=== PATIENT | male | born 1935 | race Caucasian/White ===

== ENCOUNTER 2016-10-15 15:49 | Inpatient (IN) ==
--- NOTE | 2016-10-15 16:16 | Emergency Department Note ---
Disposition Clinical Impression: Pneumonia Qualifiers: Pneumonia type: due to unspecified organism Laterality: right Lung location: unspecified part of lung Qualified Code(s): J18.9 - Pneumonia, unspecified organism Disposition: Admitted As Inpatient Condition: Fair SOB HPI - General Chief Complaint: ED Shortness of Breath/Dyspnea Stated Complaint: WORSENING OF COPD, BLOOD IN URINE Source: patient Limitations: no limitations Nursing Notes Reviewed: Yes Vital Signs Reviewed: Yes - History of Present Illness Patient is a 81-year-old gentleman with COPD. He was recently here evaluated by me for COPD exacerbation. He returns today with worsening cough and worsening shortness of breath. Pt Subjective Complaint: shortness of breath - Related Data Home Medications Medication Instructions Recorded Confirmed Albuterol Sulfate [Proair Hfa] 2 puff IH Q4H 10/15/16 10/15/16 Budesonide/Formoterol 160/4.5 1 puff IH BIDR 10/15/16 10/15/16 [Symbicort 160/4.5] Fluticasone Propionate Nasal 1 spray NS DAILY 10/15/16 10/15/16 [Flonase] Loratadine [Allergy Relief] 10 mg PO DAILY 10/15/16 10/15/16 Omeprazole [PriLOSEC] 20 mg PO DAILY 10/15/16 10/15/16 Rosuvastatin [Crestor] 20 mg PO HS 10/15/16 10/15/16 Tiotropium [Spiriva] 18 mcg IH 0700 10/15/16 10/15/16 Previous Rx's Medication Instructions Recorded PredniSONE 40 mg PO DAILY #10 tablet 10/13/16 Allergies Allergy/AdvReac Type Severity Reaction Status Date / Time Penicillins AdvReac See Verified 10/18/15 12:42 Comments All systems ED: reviewed and negative except as stated. Past Medical History - Past Medical History Medical history: Reports: cancer, COPD, other Psychiatric history: Reports: no psych history - Social History Smoking Status: Current every day smoker Smokeless Tobacco Status: No Alcohol use: Reports: none Drug use: Reports: none Physical Exam - General Limitations: no limitations General appearance: alert - Eye Eye exam: Present: normal appearance - ENT ENT exam: mucous membranes dry - Neck Neck exam: Present: normal inspection - Chest Chest inspection: Present: normal inspection, symmetric chest wall rise - Respiratory Respiratory exam: Present: wheezes - Cardiovascular Cardiovascular exam: Present: tachycardia - Abdominal Exam Abdominal exam: Present: soft, Non-Tender - Extremities Exam Extremities exam: Present: normal inspection - Expanded Lower Extremity Exam Gait: not tested/not observed - Back Exam Back exam: Present: normal inspection - Neurological Exam Neurological exam: Present: alert, oriented X3, CN II-XII intact - Psychiatric Psychiatric exam: Present: normal affect - Skin Skin exam: Present: warm, dry Course Vital Signs Temperature 98.3 F 10/15/16 15:52 Pulse Rate 122 10/15/16 15:52 Respiratory Rate 20 10/15/16 15:52 Blood Pressure 148/91 10/15/16 15:52 O2 Sat by Pulse Oximetry 99 10/15/16 15:52 Temperature 98.6 F 10/15/16 18:05 Pulse Rate 125 10/15/16 16:18 Respiratory Rate 22 10/15/16 18:05 Blood Pressure 130/92 10/15/16 18:05 O2 Sat by Pulse Oximetry 94 L 10/15/16 16:32 Oxygen Delivery Oxygen Delivery Nasal Cannula Shortness of Breath/Dyspnea - [facility] Narrative Medical decision making narrative: Differential: COPD versus pneumonia - Lab Data Lab results reviewed: Yes I reviewed the patient's lab results. Result diagrams: 10/15/16 16:23 10/15/16 16:23 Lab Results 10/15/16 10/15/16 10/15/16 Range/Units 16:23 16:23 16:23 WBC 16.4 H D (4.3-11.1) K/mcL RBC 4.30 (4.19-5.50) M/mcL Hgb 14.0 (12.9-16.9) g/dL Hct 41.1 (37.5-50.1) % MCV 95.6 (83.0-100.0) fL MCH 32.6 (28.0-33.3) pg MCHC 34.1 (31.6-35.5) g/dL RDW 12.4 (11.5-14.5) % Plt Count 308 (140-400) K/mcL MPV 8.5 L (9.4-12.4) fL Immature Gran % 0.6 (0-4) % Seg Neutrophils % 90.2 % Lymphocytes % 2.6 % Monocytes % 6.5 % Eosinophils % 0.0 % Basophils % 0.1 % Neutrophils # 14.8 H (1.6-8.9) K/mcL Lymphocytes # 0.4 L (0.6-4.6) K/mcL Monocytes # 1.1 (0.0-1.3) K/mcL Eosinophils # 0.0 (0.0-0.6) K/mcL Basophils # 0.0 (0.0-0.2) K/mcL PT 11.9 (9.4-12.1) Seconds INR 1.1 Sodium 140 (136-145) mEq/L Potassium 4.6 H (3.5-4.5) mEq/L Chloride 98 (98-109) mEq/L Carbon Dioxide 31 H (19-29) mEq/L BUN 22 (8-26) mg/dL Creatinine 0.81 (0.72-1.25) mg/dL Est GFR ( Amer) > 60 (> 60) Est GFR (Non-Af Amer) > 60 (> 60) BUN/Creatinine Ratio 27 H (6-26) Glucose 117 H (70-99) mg/dL Calculated Osmolality 294 (280-300) Calcium 11.0 H (8.6-10.8) mg/dL Total Bilirubin 0.3 (0.2-1.2) mg/dL AST 32 (5-34) Units/L ALT 24 (0-55) Units/L Alkaline Phosphatase 107 (38-126) Units/L Troponin I (0-0.03) ng/mL B-Natriuretic Peptide (0-100) pg/mL Serum Total Protein 7.4 (6.0-8.3) g/dL Albumin 3.1 L (3.5-5.0) g/dL Globulin 4.3 H (2.4-3.5) g/dL Albumin/Globulin Ratio 0.7 L (1.1-2.2) 10/15/16 10/15/16 Range/Units 16:23 16:23 WBC (4.3-11.1) K/mcL RBC (4.19-5.50) M/mcL Hgb (12.9-16.9) g/dL Hct (37.5-50.1) % MCV (83.0-100.0) fL MCH (28.0-33.3) pg MCHC (31.6-35.5) g/dL RDW (11.5-14.5) % Plt Count (140-400) K/mcL MPV (9.4-12.4) fL Immature Gran % (0-4) % Seg Neutrophils % % Lymphocytes % % Monocytes % % Eosinophils % % Basophils % % Neutrophils # (1.6-8.9) K/mcL Lymphocytes # (0.6-4.6) K/mcL Monocytes # (0.0-1.3) K/mcL Eosinophils # (0.0-0.6) K/mcL Basophils # (0.0-0.2) K/mcL PT (9.4-12.1) Seconds INR Sodium (136-145) mEq/L Potassium (3.5-4.5) mEq/L Chloride (98-109) mEq/L Carbon Dioxide (19-29) mEq/L BUN (8-26) mg/dL Creatinine (0.72-1.25) mg/dL Est GFR ( Amer) (> 60) Est GFR (Non-Af Amer) (> 60) BUN/Creatinine Ratio (6-26) Glucose (70-99) mg/dL Calculated Osmolality (280-300) Calcium (8.6-10.8) mg/dL Total Bilirubin (0.2-1.2) mg/dL AST (5-34) Units/L ALT (0-55) Units/L Alkaline Phosphatase (38-126) Units/L Troponin I 0.01 (0-0.03) ng/mL B-Natriuretic Peptide 58 (0-100) pg/mL Serum Total Protein (6.0-8.3) g/dL Albumin (3.5-5.0) g/dL Globulin (2.4-3.5) g/dL Albumin/Globulin Ratio (1.1-2.2) - Radiology Data Radiology results reviewed: Yes I reviewed the patient's radiology results. ITS Impressions Chest X-Ray 10/15/16 16:06 IMPRESSION: 1. Increased patchy right perihilar and basilar airspace opacities, potentially developing multifocal pneumonia given the clinical history. Lobular edema could appear similar. 2. Unchanged interstitial prominence could be related to pulmonary vascular congestion or interstitial pneumonia. 3. Suspected new trace bilateral pleural effusions. D/ / Sarbjit Byrnes MD / Sarbjit Byrnes MD Interpreting Provider: Sarbjit Byrnes MD - EKG Data EKG attestation: Yes I reviewed and interpreted this EKG. EKG shows normal: Reports: sinus rhythm Rate: Reports: tachycardia Rhythm: Reports: NSR Interpretation: Reports: unchanged when compared to prior tracing (date)
[2016-10-15] MEDS ORDERED: Ipratropium/Albuterol Neb 3 ML IH STA (16:17)
[2016-10-15 16:32] LABS: Basophils % 0.1 %; Hematocrit 41.1 % (37.5-50.1); Immature Granulocytes % 0.6 % (0-4); Lymphocytes # 0.4 K/mcL (0.6-4.6); Lymphocytes % 2.6 %; Mean Corpuscular HGB Conc 34.1 g/dL (31.6-35.5); Mean Corpuscular Hemoglobin 32.6 pg (28.0-33.3); Mean Corpuscular Volume 95.6 fL (83.0-100.0); Mean Platelet Volume 8.5 fL (9.4-12.4); Monocytes # 1.1 K/mcL (0.0-1.3); Monocytes % 6.5 %; Platelet Count 308 K/mcL (140-400); Red Cell Distribution Width 12.4 % (11.5-14.5); Segmented Neutrophils % 90.2 %
[2016-10-15 16:36] LABS: Neutrophils # 14.8 K/mcL (1.6-8.9)
[2016-10-15 16:38] LABS: INR 1.1; Prothrombin Time 11.9 Seconds (9.4-12.1)
[2016-10-15 16:51] LABS: Alanine Aminotransferase 24 Units/L (0-55); Albumin 3.1 g/dL (3.5-5.0); Albumin/Globulin Ratio 0.7 (1.1-2.2); Aspartate Amino Transferase 32 Units/L (5-34); BUN/Creatinine Ratio 27 (6-26); Bilirubin,Total 0.3 mg/dL (0.2-1.2); Blood Urea Nitrogen 22 mg/dL (8-26); Carbon Dioxide 31 mEq/L (19-29); Chloride 98 mEq/L (98-109); Globulin 4.3 g/dL (2.4-3.5); Glucose 117 mg/dL (70-99); Osmolality,Calculated 294 (280-300); Potassium 4.6 mEq/L (3.5-4.5); Sodium 140 mEq/L (136-145); Total Protein 7.4 g/dL (6.0-8.3); eGFR For African Americans > 60 (> 60); eGFR For Non-African Americans > 60 (> 60)
[2016-10-15 17:01] LABS: Alkaline Phosphatase 107 Units/L (38-126)
[2016-10-15] MEDS ORDERED: Levofloxacin 750 MG/150 ML 750 MG/150 ML BAG IVPB ONE (18:00)
[2016-10-15 18:52] LABS: Bilirubin,Urine Negative (Negative); Blood,Urine Large (Negative); Clarity,Urine Slightly Cloudy (Clear); Glucose,Urine (UA) Normal (Normal); Ketones,Urine Negative (Negative); Leukocyte Esterase,Urine Negative (Negative); Nitrite,Urine Negative (Negative); Protein,Urine 100 mg/dL (Neg-Trace); Specific Gravity,Urine 1.015 (1.010-1.025); Urobilinogen,Urine Normal (Normal)
[2016-10-15 19:10] LABS: Color,Urine Dark Yellow (Yellow)
[2016-10-15 19:12] LABS: RBC,Urine TNTC per hpf (0-3); Squamous Epithelial Cell,Urine Few per lpf (None-Few)
[2016-10-15 19:13] LABS: Bacteria,Urine Many per hpf (None-Few)
[2016-10-15 19:14] LABS: Mucus,Urine Few (Few)
[2016-10-15] MEDS: Budesonide/Formoterol 160/4.5 MDI IH SCH (20:31)
[2016-10-16] MEDS ORDERED: *HR* Enoxaparin 40 MG/0.4 ML SYRINGE SQ SCH (06:00)
[2016-10-16] MEDS: Fluticasone Propionate Nasal 50 MCG/SPRAY BOTTLE NS SCH (08:06)
[2016-10-16] MEDS: PredniSONE 20 MG TABLET PO SCH (08:06)
[2016-10-16] MEDS: Budesonide/Formoterol 160/4.5 MDI IH SCH ×2 (08:58→21:57)
[2016-10-16] MEDS ORDERED: Loratadine 10 MG TABLET PO SCH (09:00)
[2016-10-16] MEDS ORDERED: Albuterol 2.5 MG/3 ML NEBULIZER ONE (10:09)
[2016-10-16] MEDS: Albuterol 2.5 MG/3 ML NEBULIZER IH PRN ×3 (10:17→21:57)
[2016-10-16] MEDS: Tiotropium 18 MCG inhalation IH SCH (10:31)
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
[2016-10-16] MEDS: Levofloxacin 500 MG/100 ML 500 MG/100 ML BAG IVPB SCH (12:36)
[2016-10-16] MEDS: *HR* Enoxaparin 40 MG/0.4 ML SYRINGE SQ SCH (13:32)
--- NOTE | 2016-10-16 14:22 | Electrocardiograph Report ---
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
[2016-10-17 05:21] LABS: Basophils % 0.2 %; Eosinophils % 0.4 %; Hemoglobin 13.2 g/dL (12.9-16.9); Immature Granulocytes % 0.6 % (0-4); Lymphocytes # 1.2 K/mcL (0.6-4.6); Lymphocytes % 11.9 %; Mean Corpuscular HGB Conc 33.8 g/dL (31.6-35.5); Mean Corpuscular Hemoglobin 32.6 pg (28.0-33.3); Mean Corpuscular Volume 96.3 fL (83.0-100.0); Mean Platelet Volume 8.5 fL (9.4-12.4); Monocytes # 0.9 K/mcL (0.0-1.3); Monocytes % 9.2 %; Neutrophils # 7.7 K/mcL (1.6-8.9); Platelet Count 258 K/mcL (140-400); Red Blood Count 4.05 M/mcL (4.19-5.50); Red Cell Distribution Width 12.4 % (11.5-14.5); Segmented Neutrophils % 77.7 %
[2016-10-17 05:44] LABS: Alanine Aminotransferase 19 Units/L (0-55); Albumin 2.6 g/dL (3.5-5.0); Albumin/Globulin Ratio 0.6 (1.1-2.2); Alkaline Phosphatase 110 Units/L (38-126); Aspartate Amino Transferase 22 Units/L (5-34); BUN/Creatinine Ratio 26 (6-26); Bilirubin,Total 0.3 mg/dL (0.2-1.2); Blood Urea Nitrogen 20 mg/dL (8-26); Calcium 10.9 mg/dL (8.6-10.8); Carbon Dioxide 32 mEq/L (19-29); Chloride 98 mEq/L (98-109); Globulin 4.1 g/dL (2.4-3.5); Glucose 93 mg/dL (70-99); Osmolality,Calculated 294 (280-300); Potassium 4.3 mEq/L (3.5-4.5); Sodium 141 mEq/L (136-145); Total Protein 6.7 g/dL (6.0-8.3); eGFR For African Americans > 60 (> 60); eGFR For Non-African Americans > 60 (> 60)
[2016-10-17 06:06] LABS: Thyroid Stimulating Hormone 1.957 mcIU/mL (0.350-4.840)
[2016-10-17] MEDS: *HR* Enoxaparin 40 MG/0.4 ML SYRINGE SQ SCH (06:08)
[2016-10-17] MEDS: PredniSONE 20 MG TABLET PO SCH (09:13)
[2016-10-17] MEDS: Fluticasone Propionate Nasal 50 MCG/SPRAY BOTTLE NS SCH (09:13)
[2016-10-17] MEDS: Tiotropium 18 MCG inhalation IH SCH (09:40)
[2016-10-17] MEDS: Budesonide/Formoterol 160/4.5 MDI IH SCH ×2 (09:40→22:03)
--- NOTE | 2016-10-17 10:10 | Internal Med Progress Note ---
Date of Encounter: 10/17/16 Time of Encounter: 10:00 - Assessment and plan (1) Pneumonia Current Visit: Yes Status: Acute Assessment and plan: October 17. Continue Levaquin and lactobacillus. Qualifiers: Pneumonia type: due to unspecified organism Laterality: bilateral Lung location: unspecified part of lung Qualified Code(s): J18.9 - Pneumonia, unspecified organism (2) Weight loss of more than 10% body weight Current Visit: Yes Status: Acute Assessment and plan: October 17. TSH was normal. I reviewed his CT reports with him showing bladder mass. There is no obvious evidence of metastases at this time (3) Hypercalcemia Current Visit: Yes Status: Acute Assessment and plan: October 17. PTH is pending. (4) Bladder cancer Current Visit: Yes Status: Acute Assessment and plan: October 17. I call [facility] urology and patient is now scheduled for an appointment with Dr. Poole on October 26 at 3:30 PM Qualifiers: Bladder location: unspecified site Qualified Code(s): C67.9 - Malignant neoplasm of bladder, unspecified - Subjective Interval history: October 17. He has no new complaints and feels better - Constitutional Vitals: Temp Pulse Resp BP Pulse Ox 98.0 F 79 18 131/97 94 L 10/17/16 07:03 10/17/16 07:03 10/17/16 09:43 10/17/16 07:03 10/17/16 09:43 Exam: He is sitting in a chair at bedside resting comfortably. He appears in less respiratory distress than yesterday. His affect is bright and cheerful. I reviewed his medications and lab results and CT reports. Internal Medicine: Result - Labs CBC & Chem 7: 10/17/16 05:01 10/17/16 05:01 Labs: Short CBC 10/17/16 Range/Units 05:01 WBC 10.0 (4.3-11.1) K/mcL Hgb 13.2 (12.9-16.9) g/dL Hct 39.0 (37.5-50.1) % Plt Count 258 (140-400) K/mcL Neutrophils # 7.7 (1.6-8.9) K/mcL BMP 10/17/16 05:01 Sodium 141 Potassium 4.3 Chloride 98 Carbon Dioxide 32 H BUN 20 Creatinine 0.76 Glucose 93 Calcium 10.9 H Liver Function 10/17/16 Range/Units 05:01 Total Bilirubin 0.3 (0.2-1.2) mg/dL AST 22 (5-34) Units/L ALT 19 (0-55) Units/L Alkaline Phosphatase 110 (38-126) Units/L Albumin 2.6 L (3.5-5.0) g/dL - ABG Interpretation ABG results: PT/INR, D-dimer PT 11.9 Seconds (9.4-12.1) 10/15/16 16:23 Consult Discharge Plan - Plan Referrals: Kirsten Howe, [employer] [Primary Care Provider] - 1 week
[2016-10-17] MEDS: Levofloxacin 500 MG/100 ML 500 MG/100 ML BAG IVPB SCH (11:32)
[2016-10-18 06:03] LABS: Basophils % 0.1 %; Eosinophils % 0.3 %; Hematocrit 37.6 % (37.5-50.1); Hemoglobin 12.7 g/dL (12.9-16.9); Immature Granulocytes % 0.8 % (0-4); Lymphocytes # 1.3 K/mcL (0.6-4.6); Lymphocytes % 13.2 %; Mean Corpuscular HGB Conc 33.8 g/dL (31.6-35.5); Mean Corpuscular Hemoglobin 32.6 pg (28.0-33.3); Mean Corpuscular Volume 96.7 fL (83.0-100.0); Mean Platelet Volume 8.9 fL (9.4-12.4); Monocytes # 0.8 K/mcL (0.0-1.3); Monocytes % 8.6 %; Neutrophils # 7.3 K/mcL (1.6-8.9); Platelet Count 291 K/mcL (140-400); Red Blood Count 3.89 M/mcL (4.19-5.50); Red Cell Distribution Width 12.2 % (11.5-14.5)
[2016-10-18] MEDS: *HR* Enoxaparin 40 MG/0.4 ML SYRINGE SQ SCH (06:10)
[2016-10-18 06:30] LABS: Platelet Estimate Normal (Normal)
[2016-10-18 06:34] VITALS: BP 144/78
[2016-10-18] MEDS: PredniSONE 20 MG TABLET PO SCH (08:08)
[2016-10-18] MEDS: Fluticasone Propionate Nasal 50 MCG/SPRAY BOTTLE NS SCH (08:09)
[2016-10-18] MEDS: Tiotropium 18 MCG inhalation IH SCH (08:20)
[2016-10-18] MEDS: Budesonide/Formoterol 160/4.5 MDI IH SCH (08:21)
--- NOTE | 2016-10-18 09:48 | Discharge Summary ---
Date of Encounter: 10/18/16 Time of Encounter: 09:35 - Discharge Diagnosis (1) Pneumonia Priority: Primary Status: Acute Qualifiers: Pneumonia type: due to unspecified organism Laterality: bilateral Lung location: unspecified part of lung Qualified Code(s): J18.9 - Pneumonia, unspecified organism (2) Weight loss of more than 10% body weight Priority: Secondary Status: Acute (3) Hypercalcemia Priority: Secondary Status: Acute (4) Bladder cancer Priority: Secondary Status: Acute Qualifiers: Bladder location: unspecified site Qualified Code(s): C67.9 - Malignant neoplasm of bladder, unspecified - Discharge Medications Prescriptions: Lactobacillus [Culturelle] 1 each PO BID #6 cap.sprink Levofloxacin [Levaquin] 500 mg PO DAILY #3 tablet Home Medications: Albuterol Sulfate [Proair Hfa] 2 puff IH Q4H 10/15/16 [History] Budesonide/Formoterol 160/4.5 [Symbicort 160/4.5] 1 puff IH BIDR 10/15/16 [ History] Fluticasone Propionate Nasal [Flonase] 1 spray NS DAILY 10/15/16 [History] Omeprazole [PriLOSEC] 20 mg PO DAILY 10/15/16 [History] Rosuvastatin [Crestor] 20 mg PO HS 10/15/16 [History] Tiotropium [Spiriva] 18 mcg IH 0700 10/15/16 [History] Lactobacillus [Culturelle] 1 each PO BID #6 cap.sprink 10/18/16 [Rx] Levofloxacin [Levaquin] 500 mg PO DAILY #3 tablet 10/18/16 [Rx] Allergies/Adverse Reactions: Allergies Penicillins Adverse Reaction (Verified 10/18/15 12:42) See Comments Date of admission: 10/16/16 12:05 Primary care physician: Kirsten Howe - Patient Status Disposition: Home, Self-Care Condition: Fair Overall status at discharge: patient is progressing back to baseline - Discharge Instructions Follow Up With: Kirsten Howe, JENNIFER [Primary Care Provider] - 1 week - Diet and Activity Activity: resume usual activities as tolerated Diet: advance to your usual diet Hospital course: Mr. Weaver is a 81 year old male who came to emergency room stating he had increasing dyspnea with cough productive of yellow-green sputum. He had been seen in emergency room 3 days previously and been diagnosed with exacerbation of COPD. He was given a prescription for prednisone but no antibiotic was given. He came back to emergency room October 15 and was felt to have pneumonia and was admitted to [facility] for ongoing care needs. Initial orders were written by the emergency room physician. I saw him on October 16 and performed a history and physical. He was started empirically on Levaquin for pneumonia. I ordered a chest CT to further evaluate for pneumonia and malignancy. There was bilateral middle lobe and lower lobe airspace disease consistent with pneumonia. Emphysema changes were noted and chronic T10 vertebral body compression deformity was seen. He had clinical improvement and remained afebrile during his hospital stay. Leukocytosis and left shift resolved. On October 18 I felt he was stable for discharge home and will continue with antibiotic and probiotics for 3 additional days at discharge. Abdominal pelvic CT was done to further evaluate his weight loss and significant hematuria. A soft tissue mass measuring 2.8 x 1.8 cm in the right posterior lateral aspect of the urinary bladder wall just medial to the right UVJ was seen. Patient reported a previous history of bladder cancer. I spoke with Dr. Sarthak Poole's office and the patient was scheduled for an office visit October 26 at 3:30 PM to further evaluate the bladder mass which is likely malignancy. PTH returned highly elevated at 80.3. I felt his mild hypercalcemia was possibly due to bladder malignancy. This can be followed up as an outpatient. On October 18 he felt stable for discharge home. He will follow with Kirsten Laureano CNP within 1 week. He will see Dr. Poole October 26 at 3:30 PM for evaluation for the bladder mass. - Time Spent with Patient Total time spent providing and/or coordinating discharge services: - Constitutional Vitals: Temp Pulse Resp BP Pulse Ox 98.7 F 71 18 144/78 99 10/18/16 09:22 10/18/16 09:22 10/18/16 09:22 10/18/16 09:22 10/18/16 09:22
[2016-10-18] MEDS ORDERED: FLU VACC QS2016-17 36MOS UP/PF 0.5 ML SYRINGE IM ONE (10:48)
== END 2016-10-18 11:30 | disposition home or self-care (01) | DRG 190 ==
LOC: INPPIK 15:49 → EMEROOPIK 15:49 → INPPIK 18:07
PROVIDERS: ADMIT Internal Medicine; ATTEND Internal Medicine